=== PATIENT | female | born 1960 | race Caucasian/White ===

== ENCOUNTER 2017-03-30 05:49 | Emergency (ER) | payer OTHER ==
[~2017-03-30] VITALS: Ht 175.3 cm; Wt 108.5 kg
[2017-03-30 07:02] LABS: APPEARANCE CLEAR ((CLEAR)); BILIRUBIN NEGATIVE; BLOOD NEGATIVE; COLOR YELLOW ((YELLOW)); GLUCOSE (STRIP) NEGATIVE; KETONES NEGATIVE; LEUKOCYTES MODERATE; NITRITE NEGATIVE; PROTEIN (STRIP) 100; SPECIFIC GRAVITY 1.014 (1.000-1.030); UROBILINOGEN 0.2 MG/DL (0.2-1.0)
[2017-03-30 07:49] LABS: BACTERIA RARE /HPF; EPITHELIAL CELLS RARE /HPF; MUCUS TRACE /LPF; RED BLOOD CELLS 0-5 /HPF (0-5); UCUL ADDED? YES; WHITE BLOOD CELLS 15-20 /HPF (0-5)
[2017-03-30 08:18] LABS: BASOPHIL (%) 0.8 % (0-1); EOSINOPHIL (%) 0.8 % (0-5); HEMATOCRIT 40.9 % (36.0-46.0); HEMOGLOBIN 12.7 G/DL (11.9-15.5); IMMATURE GRANULOCYTE (%) 0.6 % (0.0-0.7); LYMPHOCYTE (%) 13.8 % (15-42); LYMPHOCYTE COUNT 0.7 K/uL (1.0-2.8); MCH 26.6 PG (29.0-34.0); MCHC 31.1 G/DL (30.0-36.0); MCV 85.6 FL (83-99); MONOCYTE (%) 6.3 % (3-12); MONOCYTE COUNT 0.3 K/uL (0-0.8); NEUTROPHIL (%) 77.7 % (45-76); NEUTROPHIL COUNT 3.7 K/uL (1.8-6.4); PLATELET COUNT 158 K/uL (156-360); RBC DIS.WIDTH-CV 14.2 % (11.8-14.6); RBC DIS.WIDTH-SD 43.8 % (39-53); RED BLOOD COUNT 4.78 M/uL (3.80-5.20); WHITE BLOOD COUNT 4.8 K/uL (4.1-10.2)
[2017-03-30 08:31] LABS: ALBUMIN 3.3 g/dL (3.2-4.8); CHLORIDE 102 mEq/L (99-109); POTASSIUM 3.9 mEq/L (3.7-5.4); SODIUM 139 mEq/L (136-147)
[2017-03-30 08:32] LABS: MAGNESIUM 2.2 mg/dL (1.3-2.7)
[2017-03-30 08:33] LABS: GLUCOSE 119 mg/dL (70-99)
[2017-03-30 08:35] LABS: TOTAL BILIRUBIN 0.4 mg/dL (0.0-1.0)
[2017-03-30 08:37] LABS: ALKALINE PHOSPHATASE 90 IU/L (3-129); CREATININE 1.5 mg/dL (0.6-1.3); GFR ESTIMATE (CALCULATED) 38 mL/min/
[2017-03-30 08:38] LABS: UREA NITROGEN (BUN) 29 mg/dL (9-23)
[2017-03-30 08:39] LABS: AST (GOT) 31 IU/L (2-34)
[2017-03-30 08:40] LABS: ALT (GPT) 22 IU/L (3-49); CREATINE KINASE 149 IU/L (1-294); TOTAL CK 149 IU/L (1-294)
[2017-03-30 08:41] LABS: TROP-I INTERPRETATION NEGATIVE; TROPONIN-I 0.06 ng/mL (0.0-0.30)
[2017-03-30 08:46] LABS: CK-MB 2.5 ng/mL (0.0-4.9); CKMB RELATIVE INDEX 1.7 (0.0-3.9)
[2017-03-30 10:11] LABS: TROP-I INTERPRETATION NEGATIVE; TROPONIN-I 0.07 ng/mL (0.0-0.30)
[2017-03-30] MEDS ORDERED: MACROBID100 MG PO (12:52)
[2017-03-30] MEDS ORDERED: ANTIVERT25 MG PO (12:56)
[2017-03-30 13:22] VITALS: BP 102/67
== END 2017-03-30 13:23 | disposition home or self-care (01) ==
LOC: EME → EDBD 05:49 → EME 13:23
PROVIDERS: Emergency Medicine
DX: R55 Syncope and collapse (principal); E86.0 Dehydration; G45.9 Transient cerebral ischemic attack, unspecified; N39.0 Urinary tract infection, site not specified; R05 Cough; R09.81 Nasal congestion; I45.10 Unspecified right bundle-branch block; I50.9 Heart failure, unspecified; Z95.810 Presence of automatic (implantable) cardiac defibrillator; Z88.0 Allergy status to penicillin; Z87.891 Personal history of nicotine dependence
CPT/HCPCS: 70450; 71045; 80053; 81003; 82550; 82553; 82948; 83735; 84484; 85025; 87086; 93005; 99281; 99284; J2405; J7030